=== PATIENT | male | born 1940 | race Caucasian/White ===

== ENCOUNTER 2017-01-07 10:26 | Inpatient (IN) | payer OTHER ==
[~2017-01-07] VITALS: Ht 188 cm; Wt 105.2 kg
--- NOTE | ~2017-01-07 | HC ---
[facility] [place] [address] CONSULTATION Name: ALBERTO COHEN Room #: 307-P ADM IN M.R.#: [id number] Admission: 01/07/17 Attend Phys: Avelino Kay DO Discharge: Date of : 36 Report #: [id number] THIS REPORT FOR: //name// CC: Rahat Kay DATE OF SERVICE: 01/07/2017 NEPHROLOGY CONSULTATION ATTENDING PHYSICIAN: Avelino Kay DO. REASON FOR CONSULTATION: Chronic kidney disease. HISTORY OF PRESENT ILLNESS: The patient is well known to our service, followed in our office clinic by Dr. East. Has a baseline creatinine of about 4. He was reasonably well until yesterday, when he developed fevers and chills. He came to the hospital. He had some erythema, swelling and tenderness of his right lower extremity below the knee and was admitted with a diagnosis of cellulitis. There is no cough or shortness of breath and no dysuria, but no urine sample has been required as of this time. He has no stiff neck or headache. No confusion. Of note, he has been having weakness and a little bit more trouble getting around over the last several days. PAST MEDICAL HISTORY: Long-standing CKD. He had morbid obesity, but lost a lot of weight. He has had long-standing hypertension, but no diabetes. He has had previous obstruction with transurethral resection of the prostate and that has been relieved. Chronic metabolic acidosis, has been on bicarbonate and remote right hip replacement and tonsillectomy. ALLERGIES: Reported to PENICILLIN, SULFA, CEFAZOLIN and VANCOMYCIN. Despite the allergy to CEFAZOLIN, I should point out that he has been on chronic Keflex. FAMILY HISTORY: Negative for renal disease. SOCIAL HISTORY: No smoking. He was a former cigar smoker at one time and may be a fairly heavy alcohol drinker, none recently. He is retired and lives at home with his . REVIEW OF SYSTEMS: GENERAL: He has been feeling poorly. EYES: His vision has been okay. ENT: Hearing okay, swallows okay. Denies mouth ulcers. ENDOCRINE: No diabetes or thyroid disease. RESPIRATORY: He has not been short of breath. No pleuritic pain. No cough or hemoptysis. [address] [address] CONSULTATION Name: ALBERTO COHEN Room #: 307-P [facility] IN .R.#: [id number] Admission: 01/07/17 Attend Phys: Avelino Kay DO Discharge: Date of : 36 Report #: [id number] CARDIAC: No chest pain, angina or palpitations. GASTROINTESTINAL: Appetite is poor at the current time. No nausea, vomiting, diarrhea or bloody stools. GENITOURINARY: Denies dysuria. Urine output has dropped. NEUROLOGIC: Just generalized weakness. No history of seizure, syncope or stroke. PSYCHIATRIC: Denies depression or anxiety. Extensive history taken from the electronic medical record, from the patient and from the patient's at the bedside. PHYSICAL EXAMINATION: VITAL SIGNS: This is an ill-appearing gentleman, somewhat flushed. SKIN: Does show changes around the right calf with erythema, swelling, pain and warmth. SKELETAL: Well developed, well nourished. HEENT: Extraocular movements are full. No scleral icterus. Hearing and vision intact. Mucous membranes dry. NECK: Supple. No carotid bruits or JVD. CHEST: Clear to auscultation. HEART: Regular. ABDOMEN: Soft and nontender, without bruits, masses or organomegaly. EXTREMITIES: Show the changes of the right lower extremity, about the calf. NEUROLOGIC: Grossly intact, otherwise except for weakness. LABORATORY DATA: INR is 1.7. White count 16.5, hemoglobin 10.3, platelets 160,000 and 3% bands. Sodium 142, potassium 5.2, chloride 108, bicarbonate 23, creatinine 4.2 and BUN 53. AST is 15, ALT 16, alkaline phosphatase 66 and bilirubin is 0.8. ASSESSMENT AND PLAN: 1. Fever and chills. This appears to be recurrence of the cellulitis. This appears to be in the right lower extremity. I think he has had it on the left in the past. Just a slight bit of swelling there. Appropriate antibiotics are being given. Infectious disease consultation is obtained. We will be judicious with IV fluids as he tends to retain fluids quite easily. 2. Chronic kidney disease with creatinine close to baseline, characterized with proteinuria. Apparently, the patient has refused renal biopsy in the past. 3. Hypertension. Blood pressure is a bit up. He has been restarted on some of his home BP medications. 4. Chronic anticoagulation. 5. Chronic metabolic acidosis, on bicarbonate. <ELECTRONICALLY SIGNED> By: Luan Tanner MD 01/08/17 0617 1737 0015 Natan Almaguer MD /nt
--- NOTE | ~2017-01-07 | EKG ---
[address] [address] ELECTROCARDIOGRAM REPORT Name: ALBERTO COHEN Room #: 307-P ADM IN M.R.#: [id number] Admission: 01/07/17 Attend Phys: Avelino Kay DO Discharge: Date of : 36 Report #: [id number] THIS REPORT FOR: //name// [facility] ED Test Date: 2017-01-07 Test Time: 11:07:47 Pat Name: ALBERTO COHEN Department: Room: [facility] Gender: M Business Solutions Analyst: LELAND Roldan : 1940 Requested By: Freda Pendleton Order Number: [id number] MD: Mario Jones Measurements Intervals [place] Rate: 102 P: ID: QRS: -17 QRSD: 94 T: 122 QT: 334 QTc: 436 Interpretive Statements Atrial fibrillation Inferior infarct, old Baseline wander in lead(s) V1,V3,V6 Compared to ECG 03/06/2016 07:05:27 Nonspecific change in the ST and T-wave segments Electronically Signed On 01-08-2017 7:51:57 CDT by Mario Jones [email or web address] <ELECTRONICALLY SIGNED> By: Mario Jones MD, FACC 01/08/17 0751 1107 1107 Mario Jones MD, [facility] /EPI
[~2017-01-07 10:26] MED LIST: ACETAMINOPHEN325 M1 PO; ADULT LOW DOSE81 MG PO; ALLOPURINOL 30300 M2 PO; ANTIFUNGAL30 GM TOP; ASA5UEC PO; ASPIR 8181 MG PO; ASPIRIN EC81 M1 PO; ASPIRIN325 PO; AVAPRO300 MG PO; BAYER CHEWABLE81 MG PO; BENICAR40 MG PO; BYSTOLIC10 MG PO; BYSTOLIC20 MG PO; CARDURA4 MG PO; CIPROFLOXACIN500 M3 PO; CLEOCIN HCL150 MG PO; CLEOCIN HCL300 MG PO; COLACE100 MG PO; COREG6.25 MG PO; DAPTOMYCIN IVPB; DOXYCYCLINE 10100 M1 PO; FLOMAX0.4 MG PO; FUROSEMIDE 40 M40 M1; IRON325 PO; KEFLEX500 MG PO; LAMISIL AT 1% C12 G1 TOP; LASIX 20 MG TAB20 MG PO; NORCO 5-325 TA1 EACH PO; NORVASC 5 MG TAB5 MG PO; NORVASC5 MG PO; PHENAZOPYRIDIN200 M2 PO; PHYTOPLEX; PROSCAR 5MG TABL5 MG PO; SIMVASTATIN5 MG; SODIUM BICARBO650 M3 PO; TOPROL XL50 MG PO; TORSEMIDE20 MG PO; TRIAMCINOLONE A15 G1 TOP; TRIPLE ANTIBIO1 EAC1; TYLENOL325 MG PO; ZOCOR 20 MG TAB20 M1 PO; [UNRECOGNIZED DRUG - OTHER] IVPB
[2017-01-07 10:27] VITALS: BP 190/94
[2017-01-07 11:03] LABS: HEMATOCRIT 30.4 % (42.0-52.0); HEMOGLOBIN 10.3 gm/dL (14.0-18.0); MCH 32.3 pg (26.0-34.0); MCHC 33.7 g/dL (28.0-37.0); MCV 95.9 fL (80.0-100.0); PLATELET COUNT 160 thou/uL (150-400); RBC 3.17 mil/uL (4.50-6.00); RDW 14.2 % (10.5-14.5); WBC 16.5 thou/uL (4.0-11.0)
[2017-01-07 11:11] LABS: MANUAL DIFF YES
[2017-01-07 11:19] LABS: CALCIUM 8.7 mg/dL (8.5-10.1); CREATININE 4.2 mg/dL (0.7-1.3); POTASSIUM 5.2 mmol/L (3.5-5.1)
[2017-01-07 11:20] LABS: ALBUMIN 3.9 g/dL (3.4-5.0); TOTAL BILIRUBIN 0.8 mg/dL (<0.1-1.0); TOTAL PROTEIN 7.2 g/dL (6.4-8.2)
[2017-01-07 12:12] LABS: ABSOLUTE NEUTROPHILS 15.7 thou/uL (1.4-8.2); PLATELET ESTIMATE NORMAL; TOTAL CELL COUNT 100
[2017-01-07] MEDS ORDERED: KEPPRA 500 MG500 M1 PO (12:43)
[2017-01-07] MEDS ORDERED: KEFLEX500 MG PO (12:44)
[2017-01-07] MEDS ORDERED: COUMADIN 5 MG TA5 M1 PO (12:45)
[2017-01-07 13:20] VITALS: BP 175/80
[2017-01-07 13:48] LABS: INR 1.7
[2017-01-07 18:02] VITALS: BP 163/83
[2017-01-07 19:42] VITALS: BP 155/65
[2017-01-07 23:35] VITALS: BP 134/60
[2017-01-08 03:45] VITALS: BP 166/86
[2017-01-08 04:02] LABS: HEMATOCRIT 26.2 % (42.0-52.0); HEMOGLOBIN 8.8 gm/dL (14.0-18.0); MCH 32.3 pg (26.0-34.0); MCHC 33.6 g/dL (28.0-37.0); MCV 96.1 fL (80.0-100.0); PLATELET COUNT 120 thou/uL (150-400); RBC 2.72 mil/uL (4.50-6.00); RDW 14.3 % (10.5-14.5); WBC 9.8 thou/uL (4.0-11.0)
[2017-01-08 04:05] LABS: MANUAL DIFF YES
[2017-01-08 04:14] LABS: CALCIUM 8.3 mg/dL (8.5-10.1); CREATININE 4.2 mg/dL (0.7-1.3); PHOSPHORUS 4.3 mg/dL (2.5-4.9); POTASSIUM 4.7 mmol/L (3.5-5.1)
[2017-01-08 04:15] LABS: INR 1.9; PROTIME 20.1 Seconds (9.3-11.4)
[2017-01-08 08:16] VITALS: BP 153/59
[2017-01-08 08:42] LABS: ABSOLUTE NEUTROPHILS 8.9 thou/uL (1.4-8.2); PLATELET ESTIMATE NORMAL; TOTAL CELL COUNT 100
[2017-01-08 10:18] LABS: % SATURATION 11 % (20-39); IRON 18 ug/dL (65-175); TIBC 161 ug/dL (250-450); UIBC 143 ug/dL
[2017-01-08 15:43] VITALS: BP 168/75
[2017-01-08 20:00] VITALS: BP 156/54
[2017-01-09 04:00] VITALS: BP 160/99
[2017-01-09 06:16] LABS: HEMATOCRIT 24.2 % (42.0-52.0); HEMOGLOBIN 8.3 gm/dL (14.0-18.0); MCH 32.7 pg (26.0-34.0); MCHC 34.5 g/dL (28.0-37.0); MCV 94.9 fL (80.0-100.0); RBC 2.55 mil/uL (4.50-6.00); RDW 14.5 % (10.5-14.5); WBC 8.8 thou/uL (4.0-11.0)
[2017-01-09 06:32] LABS: ALBUMIN 2.9 g/dL (3.4-5.0); CREATININE 4.2 mg/dL (0.7-1.3); POTASSIUM 4.2 mmol/L (3.5-5.1)
[2017-01-09 08:00] VITALS: BP 156/79
[2017-01-09] MEDS ORDERED: ZYVOX600 MG PO (08:54)
[2017-01-09 10:03] VITALS: BP 156/79
[2017-01-09] MEDS ORDERED: ONMEL200 MG PO (11:10)
== END 2017-01-09 12:24 | disposition home or self-care (01) | DRG 872 ==
LOC: ER 10:26 → 3N 11:53 → EROBS 11:53 → 3N 13:17
PROVIDERS: Family Medicine; Internal Medicine Nephrology; Physician Assistant
DX: A41.9 Sepsis, unspecified organism (principal); N18.4 Chronic kidney disease, stage 4 (severe); L03.119 Cellulitis of unspecified part of limb; Z96.641 Presence of right artificial hip joint; I48.91 Unspecified atrial fibrillation; I12.9 Hypertensive chronic kidney disease with stage 1 through stage 4 chronic kidney disease, or unspecified chronic kidney disease; D64.9 Anemia, unspecified; B35.1 Tinea unguium; M19.90 Unspecified osteoarthritis, unspecified site; Z88.0 Allergy status to penicillin; Z88.1 Allergy status to other antibiotic agents; Z87.891 Personal history of nicotine dependence; Z87.442 Personal history of urinary calculi; Z88.8 Allergy status to other drugs, medicaments and biological substances; Z88.2 Allergy status to sulfonamides; Z79.01 Long term (current) use of anticoagulants
CPT/HCPCS: 10096

== ENCOUNTER → 2017-03-07 | Outpatient (CLI) | payer OTHER ==
[~2017-03-07] MED LIST changes: +COUMADIN 5 MG TA5 M1 PO; +KEPPRA 500 MG500 M1 PO; +ONMEL200 MG PO; +ZYVOX600 MG PO
--- NOTE | ~2017-03-07 | 2DMMODE ---
[facility] [address] [place] [address] 2 D/M-MODE ECHOCARDIOGRAM Name: ALBERTO COHEN Room #: REG [facility]#: [id number] Admission: 03/07/17 Attend Phys: [place] Discharge: Date of : 36 Date of Service: 03/07/17 1605 Report #: [id number] THIS REPORT FOR: //name// APPROVED REPORT Study performed: 03/07/2017 11:07:53 EXAM: Comprehensive 2D, Doppler, and color-flow Echocardiogram Patient Location: Out-Patient Status: routine BSA: 2.26 HR: 60 bpm BP: 177/94 mmHg Rhythm: Irregular Other Information Study Quality: Good Indications Nonischemic cardiomyopathy, history of Afib 2D Dimensions RVDd: 47.01 mm LVEF(%): 38.63 (>50%) IVSd: 13.27 (7-11mm) LVOT Diam: 25.01 (18-24mm) LVDd: 58.81 mm PWd: 13.35 (7-11mm) Ascending Ao: 38.53 (22-36mm) LVDs: 47.62 (25-40mm) Aortic Root: 36.63 mm Mackey's LVEF: 38.63 % Volumes Left Atrial Volume (Systole) Single Plane 4CH: 115.26 mL Single Plane 2CH: 107.77 mL LA ESV Index: 53.00 mL/m2 Aortic Valve AoV Peak Khalif.: 1.89 m/s AO Peak Gr.: 14.43 mmHg LVOT Max P.86 mmHg AO Mean Gr.: 8.08 mmHg AO V2 Mean: 1.35 m/s LVOT Max V: 0.68 m/s AO V2 VTI: 41.08 cm EDMOND Vmax: 1.77 cm2 Mitral Valve [facility] [address] [place] [address] 2 D/M-MODE ECHOCARDIOGRAM Name: ALBERTO COHEN Room #: [facility] Gaby#: [id number] Admission: 03/07/17 [facility]: [facility] Discharge: Date of : 36 Date of Service: 03/07/17 1605 Report #: [id number] E/A Ratio: 2.5 MV Decel. Time: 124.16 ms MV E Max Khalif.: 1.18 m/s MV A Khalif.: 0.47 m/s MV PHT: 36.00 ms IVRT: 83.04 ms Pulmonary Valve PV Peak Khalif.: 0.88 m/s PV Peak Gr.: 3.13 mmHg Pulmonary Vein P Vein S: 0.31 m/s P Vein D: 1.12 m/s P Vein S/D Ratio: 0.28 Tricuspid Valve TR Peak Khalif.: 3.10 m/s RAP Estimate: 5.00 mmHg TR Peak Gr.: 38.48 mmHg PA Pressure: 43.00 mmHg Left Ventricle Left ventricle is mildly dilated. Mild concentric left ventricular hypertrophy. Left ventricular systolic function is mildly decreased. LVEF is 45%. This study is not technically sufficient to allow evaluation of the LV diastolic function due to arrhythmia. Right Ventricle Right ventricle is dilated. Right ventricle is mildly hypokinetic. Atria Left atrium is severely dilated. Right atrium is moderately dilated. Aortic Valve Aortic valve is calcified. Trace aortic regurgitation. Mild aortic stenosis. Calculated EDMOND by the continuity equation is 1.8cm2. Mitral Valve The mitral valve is normal in structure. Mild mitral annular calcification. Moderate mitral regurgitation. Tricuspid Valve The tricuspid valve is normal in structure. There is trace to mild tricuspid regurgitation. The right atrial pressure is estimated at [address] [place] [address] [address] [place] [address] 2 D/M-MODE ECHOCARDIOGRAM Name: ALBRETO COHEN Room #: REG [facility]#: [id number] Admission: 03/07/17 Attend Phys: [place] Discharge: Date of : 36 Date of Service: 03/07/17 1605 Report #: [id number] mmHg. There is moderate pulmonary hypertension with an estimated PAP of 40-45mmHg. Pulmonic Valve The pulmonary valve is normal in structure. Trace pulmonic regurgitation. Great Vessels The aortic root is normal in size. The ascending aorta is mildly dilated at 3.9cm IVC is normal in size and collapses >50% with inspiration. Pericardium There is no pericardial effusion. <Conclusion> Left ventricle is mildly dilated. Mild concentric left ventricular hypertrophy. Left ventricular systolic function is mildly decreased. Right ventricle is dilated. Left atrium is severely dilated. Right atrium is moderately dilated. Mild aortic stenosis. Calculated EDMOND by the continuity equation is 1.8cm2. Moderate mitral regurgitation. There is trace to mild tricuspid regurgitation. The right atrial pressure is estimated at 5 mmHg. There is moderate pulmonary hypertension with an estimated PAP of 40-45mmHg. <ELECTRONICALLY SIGNED> By: Vishal Bush MD 03/07/17 1605 1605 1605 Vishal Bush MD /INF
== END ==
LOC: CV 10:52
DX: I51.7 Cardiomegaly (principal); I42.0 Dilated cardiomyopathy; I34.0 Nonrheumatic mitral (valve) insufficiency; I48.91 Unspecified atrial fibrillation

== ENCOUNTER → 2018-01-21 | Outpatient (CLI) | payer OTHER | LOC: RAD 11:42 | DX: M19.031 Primary osteoarthritis, right wrist (principal) ==

== ENCOUNTER → 2019-03-18 | Outpatient (CLI) | payer OTHER ==
--- NOTE | 2019-03-18 12:12 | 2DMMODE ---
[facility] [place] [address] 2 D/M-MODE ECHOCARDIOGRAM Name: ALBERTO COHEN Room #: REG [facility]#: [id number] Admission: 03/18/19 Attend Phys: [place] Discharge: Date of : 36 Date of Service: 03/18/19 1212 Report #: [id number] THIS REPORT FOR: //name// APPROVED REPORT Study performed: 03/18/2019 11:21:27 EXAM: Comprehensive 2D, Doppler, and color-flow Echocardiogram Patient Location: Out-Patient Status: routine BSA: 2.15 HR: 60 bpm BP: 155/85 mmHg Rhythm: Atrial Fibrillation Other Information Study Quality: Adequate Indications Atrial Fibrillation 2D Dimensions RVDd: 46.15 mm IVSd: 13.96 (7-11mm) LVOT Diam: 25.07 (18-24mm) LVDd: 54.15 mm PWd: 12.01 (7-11mm) Ascending Ao: 35.38 (22-36mm) LVDs: 39.15 (25-40mm) Aortic Root: 35.89 mm Volumes Left Atrial Volume (Systole) Single Plane 4CH: 122.42 mL Single Plane 2CH: 122.82 mL LA ESV Index: 59.00 mL/m2 Aortic Valve AoV Peak Khalif.: 2.24 m/s AO Peak Gr.: 20.10 mmHg LVOT Max P.48 mmHg AO Mean Gr.: 11.85 mmHg AO V2 Mean: 1.65 m/s LVOT Max V: 0.79 m/s AO V2 VTI: 44.58 cm EDMOND Vmax: 1.73 cm2 Mitral Valve MV Decel. Time: 234.93 ms [facility] [address] [place] [address] 2 D/M-MODE ECHOCARDIOGRAM Name: ALBERTO COHEN Room #: [facility]#: [id number] Admission: 03/18/19 Attend Phys: [place] Discharge: Date of : 36 Date of Service: 03/18/19 1212 Report #: [id number] MV E Max Khalif.: 0.91 m/s Pulmonary Valve PV Peak Khalif.: 0.94 m/s PV Peak Gr.: 3.53 mmHg Tricuspid Valve TR Peak Khalif.: 2.47 m/s RAP Estimate: 5.00 mmHg TR Peak Gr.: 24.32 mmHg PA Pressure: 29.00 mmHg Left Ventricle The left ventricle is normal size. Mild concentric left ventricular hypertrophy. Left ventricular systolic function is normal. LVEF is 55%. This study is not technically sufficient to allow evaluation of the LV diastolic function due to atrial fibrillation. Right Ventricle Right ventricle is mildly dilated. The right ventricular systolic function is low normal. Atria Left atrium is severely dilated. Right atrium is moderately dilated. Aortic Valve Aortic valve is moderately calcified. No aortic regurgitation is present. There is mild valvular aortic stenosis. Calculated aortic valve area is 1.7 cm2 with maximum pressure gradient of 20 mmHg and mean pressure gradient of 12 mmHg. Mitral Valve The mitral valve is normal in structure. Trace mitral regurgitation. Tricuspid Valve The tricuspid valve is normal in structure. Trace to mild tricuspid regurgitation. Estimated PAP is 30mmHg. Pulmonic Valve The pulmonary valve is normal in structure. Trace pulmonic regurgitation. Great Vessels The aortic root is normal in size. The ascending aorta is normal in size. IVC is normal in size and collapses >50% with inspiration. [facility] [address] [place] [address] 2 D/M-MODE ECHOCARDIOGRAM Name: ALBERTO COHEN [id number] Admission: 03/18/19 Attend Phys: [place] Discharge: Date of : 36 Date of Service: 03/18/19 1212 Report #: [id number] Pericardium There is no pericardial effusion. <Conclusion> The left ventricle is normal size. LVEF is 55%. Right ventricle is mildly dilated. Left atrium is severely dilated. Right atrium is moderately dilated. Aortic valve is moderately calcified. There is mild valvular aortic stenosis. Calculated aortic valve area is 1.7 cm2 with maximum pressure gradient of 20 mmHg and mean pressure gradient of 12 mmHg. The mitral valve is normal in structure. Trace mitral regurgitation. The tricuspid valve is normal in structure. Trace to mild tricuspid regurgitation. Estimated PAP is 30mmHg. The pulmonary valve is normal in structure. Trace pulmonic regurgitation. There is no pericardial effusion. <ELECTRONICALLY SIGNED> By: Justin Wheat MD 03/18/19 121 11 11 Justin Wheat MD /INF
== END ==
LOC: CV 11:03
DX: I08.2 Rheumatic disorders of both aortic and tricuspid valves (principal); I48.91 Unspecified atrial fibrillation